=== PATIENT | male | born 1995 | race Caucasian/White ===

== ENCOUNTER 2020-04-21 08:14 | Day surgery (SDC) | payer BC, OTHER ==
[~2020-04-21] VITALS: Ht 180.3 cm; Wt 79.8 kg
[~2020-04-21 08:14] MED LIST: EVEKEO10 MG PO; FISH OIL 1,0001 EAC9 PO; K2-4545 MCG PO; MAGNESIUM400 MG PO; VITAMIN D325 MC3 PO
[2020-04-21 10:51] VITALS: BP 118/72
[2020-04-21 12:21] VITALS: BP 118/72
--- NOTE | 2020-04-22 07:13 | O ---
[address] [address] OPERATIVE REPORT Name: ALISSA FISHMAN Room #: DEP [facility]..#: [id number] Admission: 04/21/20 Attend Phys: Johnnie Cedillo MD Discharge: 04/21/20 Date of : 89 Report #: [id number] THIS REPORT FOR: cc: Joe Casarez MD, Neal A. MD McCabe,Johnnie Garcia MD ~ DATE OF SERVICE: 04/21/2020 SERVICE: Orthopedics. FACILITY: [facility]. SURGEON: Johnnie Cedillo MD COMMERCIAL CREDIT ANALYST: Anna Moody NP. INDICATION FOR COMMERCIAL CREDIT ANALYST: Extremity positioning, suture management, arthroscope management, assistance with repair. PREOPERATIVE DIAGNOSES: 1. Right hip pain. 2. Right hip femoroacetabular impingement. 3. Right hip labral tear. POSTOPERATIVE DIAGNOSES: 1. Right hip pain. 2. Right hip femoroacetabular impingement. 3. Right hip labral tear. 4. Right hip chondromalacia. PROCEDURES: 1. Right hip arthroscopic labral repair. 2. Right hip arthroscopic Cam osteoplasty. 3. Right hip arthroscopic extraarticular subspine acetabuloplasty 4. Right hip arthroscopic chondroplasty. COMPLICATIONS: None. DRAINS: None. SPECIMENS: None. ANESTHESIA: General with regional. FINDINGS: [address] [address] OPERATIVE REPORT Name: ALISSA FISHMAN Room #: DEP [facility] Nav#: [id number] Admission: 04/21/20 Attend Phys: Johnnie Cedillo MD Discharge: 04/21/20 Date of : 89 Report #: [id number] 1. Detached anterior labral tear, treated with [place] CinchLock suture anchor x 2. 2. Early chondromalacia at the chondral labral junction secondary to the Cam impingement treated with chondroplasty with no evidence of any full thickness lesions. 3. Prominent anterior-inferior iliac spine requiring additional capsular dissection and then bony work to perform subspine decompression. 4. 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 Maximum alpha angle of approximately 70 degrees. 5. Capsular repair was done with #2 Vicryl x 4. HISTORY: The patient is a gentleman with a several-year history of persistent progressive right hip pain. This had been worsening in the past approximately 6 months, in particular, he had failed conservative treatment during this time. He tried rest, activity modifications, physical therapy, oral medicines, intra-articular injection, all without sufficient relief as well as therapeutic modalities. He had positive pain response, but nonsustained relief with the intraarticular injection and had x-rays, which showed a Cam deformity with maximal alpha angle around 70 degrees, Tonnis grade of 0 and closed growth plates. 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 He had an MRI, which showed a labral tear. He was indicated for surgical treatment after risks, benefits, alternatives and indications for surgery were discussed with him in detail preoperatively. The risks include but not limited to pain, bleeding, infection, injury to nerves or blood vessels, persistent pain despite surgical intervention, failure of any repairs, need for further surgery as well as progression of any preexisting chondral injury, stiffness, and complications related to anesthesia. Despite the risks, he wished to proceed. PROCEDURE IN DETAIL: After right lower extremity was correctly identified in the preoperative holding area as the operative site, the patient was taken to the operating room where general anesthesia was induced without complication after regional nerve block and then performed Right hip femoral head and neck junction was evaluated under fluoroscopy to identify the extended Cam deformity then the right hip was prepped and draped in standard sterile fashion. Timeout procedure performed. Traction was applied to right lower extremity. Standard anterolateral viewing portal was established and then a mid anterior working portal was established as well. There was synovitis and erythema present, so a continuous passive motion machine will be used postoperatively in order to decrease the risk of adhesions and scarring as these can be reasons for reoperation in this patient population. The transverse capsulotomy was then performed and the capsule was reflected off the dorsal side of the labrum allowing access to the acetabular region. The acetabular rim was gently abraded with a bur to decorticate and create a fresh [address] [address] OPERATIVE REPORT Name: ALISSA FISHMAN Room #: DEP [facility] M.R.#: [id number] Admission: 04/21/20 Attend Phys: Johnnie Cedillo MD Discharge: 04/21/20 Date of : 89 Report #: [id number] bleeding surface for labral re-fixation and then attention was turned towards the extraarticular component of his hip impingement, which was the subspine impingement. The capsule was dissected on the lower portion of the anterior inferior iliac spine and then the bur was used to perform a subspine decompression addressing this portion of his bony impingement. Note that this is additional work done above the acetabular rim as this patient does not have traditional pincer impingement causing rim over coverage. The Stephanie CinchLock suture anchors were then used to perform the labral repair and the shaver was used to perform chondroplasty at the chondral labral junction. He had a partial thickness chondral injury, no full thickness lesions were noted, however. The surface area was approximately 5 to perhaps 10% of the acetabular articular cartilage that had some chondral injury. After this was completed, traction was let down. Hip was flexed up. Attention was turned towards peripheral compartment. The transverse capsulotomy was then extended down the neck in a T fashion to allow access to the entire Cam deformity and then the bur was used to perform a Cam osteoplasty. I removed the instruments. I assessed the resection on C-arm, identified some additional bone distally and laterally that needed to be resected and then placed the instruments back into the hip and completed the Cam osteoplasty. Instruments were again removed. C-arm was brought in. I assessed the resection, was happy with the appearance of the Cam resection. Instruments were then placed back in the hip. The bony debris was lavaged out of the hip and then the T-shaped capsulotomy was closed with a total of four #2 Vicryl sutures. Instruments were removed. Portal sites were closed. Sterile dressing was applied. The patient was awakened from anesthesia and taken to recovery room in stable condition. There were no complications and all counts were recorded as correct. <ELECTRONICALLY SIGNED> By: Johnnie Cedillo MD 04/22/20 0713 [id number] 20 Johnnie Cedillo MD /nt
== END 2020-04-21 13:20 | disposition home or self-care (01) ==
LOC: OR 08:14 → TBA 10:49 → OR 10:58
PROVIDERS: ATTEND Orthopaedic Surgery Sports Medicine
DX: M25.551 Pain in right hip (principal); S73.101A Unspecified sprain of right hip, initial encounter; M25.851 Other specified joint disorders, right hip; M94.251 Chondromalacia, right hip; Z98.890 Other specified postprocedural states; Z79.899 Other long term (current) drug therapy; Z88.0 Allergy status to penicillin; X58.XXXA Exposure to other specified factors, initial encounter; Y93.89 Activity, other specified; Y92.89 Other specified places as the place of occurrence of the external cause; Y99.8 Other external cause status
CPT/HCPCS: 50010; 50101; 50386; 51320; 51538; 52304; 56524; 56527; 57092; 57103; 58273; 58274; 62110; 62900; 64039; 70005